=== PATIENT | female | born 1960 | race Caucasian/White ===

== ENCOUNTER → 2017-04-07 | Outpatient (CLI) | payer MEDICARE, MEDICAID ==
[~2017-04-07] MED LIST: ACET-1966 PO; CYCL10TA29 PO; FURO-47 PO; HYDR-4309 PO; IOPAMIDOL 76% 100 ML INFUS BTL 100 ML ONE; IOPAMIDOL 76% 75 ML INFUS BTL 75 ML ONE; METO1TAB38 PO; NS 0.9% 50 ML VIAL 100 ML ONE; NS 0.9% 50 ML VIAL 50 ML ONE; PROM-110 PO; PROP225T12 PO
== END ==
LOC: CT 08:00
PROVIDERS: ATTEND Nurse Practitioner Family
DX: Z02.9 Encounter for administrative examinations, unspecified (principal)
CPT/HCPCS: J7050; Q9967

== ENCOUNTER → 2017-04-11 | Outpatient (CLI) | payer MEDICARE, MEDICAID ==
[~2017-04-11] MED LIST changes: -IOPAMIDOL 76% 100 ML INFUS BTL 100 ML ONE; +IOPAMIDOL 76% 50 ML INFUS BTL 50 ML ONE; -IOPAMIDOL 76% 75 ML INFUS BTL 75 ML ONE; -NS 0.9% 50 ML VIAL 100 ML ONE
--- NOTE | 2017-04-11 13:24 | RADIOLOGY IMAGING REPORT ---
FACILITY: [facility] PATIENT NAME: Denise Gil : 1960 MR: [id number] V: [id number] EXAM DATE: ORDERING PHYSICIAN: ANDREW CHU TECHNOLOGIST: Location: [facility] - [place] Patient: Denise Gil : 1960 Visit/Account:[id number] Date of Sevice: 04/11/2017 ABDOMEN/PELVIS WITH CONTRAST HISTORY: Alcoholics cirrhosis, right abdomen pain TECHNIQUE: Following administration of IV contrast contiguous axial images acquired through the abdom en/pelvis. Coronal and sagittal reformatting also performed. The post contrast imaging was performe d in the arterial phase, the portal venous phase and delayed phase. Dose Lowering Technique One of the following dose optimization techniques was utilized in the performance of this exam: Autom ated exposure control; adjustment of the mA and/or kV according to the patient's size; or use of an i terative reconstruction technique. Specific details can be referenced in the facility's radiology C T exam operational policy. CONTRAST: 75 mL Isovue-[id number] COMPARISON: August 19, 2016 FINDINGS: Visualized lung bases: Negative. Hepatobiliary: There is a very faint ill-defined hypoattenuating mass along the inferior tip of the right lobe of the liver measuring approximately 1.4 cm in diameter. This appears hypoattenuating on all three phases of contrast enhancement. Spleen: There is a subcentimeter hypoattenuating lesion centrally within the spleen that appears unc hanged when compared the prior study Adrenals: Negative. Pancreas: Negative. Kidneys ureters or bladder: Negative. Genitalia: Hysterectomy GI: Negative. Vessels/spaces/nodes: Again noted is absence of the portal vein without obvious cavernous transforma tion. Mesenteric venous communication the left renal vein results in asymmetric prominence of the le ft renal vein and infrahepatic inferior vena cava Bones/soft tissues: There is a mild compression fracture along superior endplate of L4 not appreciat ed previously. Spondylotic changes in the inferior thoracic spine also again noted Additional findings: None pertinent. IMPRESSION: There is a very faint ill-defined hypoattenuating mass along the inferior right lobe the liver measur ing approximate 1.4 centers in diameter. This is indeterminate in nature. 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 Report Dictated By: Alethea Ardon MD at 04/11/2017 1:02 PM Report E-Signed By: Alethea Ardon MD at 04/11/2017 1:20 PM [id number]
== END ==
LOC: CT 03:56
PROVIDERS: ATTEND Nurse Practitioner Family
DX: R16.0 Hepatomegaly, not elsewhere classified (principal); D73.89 Other diseases of spleen; Z90.710 Acquired absence of both cervix and uterus
CPT/HCPCS: 74177; J7050; Q9967

== ENCOUNTER → 2017-08-15 | Outpatient (CLI) | payer MEDICARE, MEDICAID ==
[~2017-08-15] MED LIST changes: -IOPAMIDOL 76% 50 ML INFUS BTL 50 ML ONE; -NS 0.9% 50 ML VIAL 50 ML ONE
[2017-08-15 13:29] LABS: PLATELET COUNT, AUTOMATED 114 K/uL (150-450)
[2017-08-15 13:45] LABS: INR 1.27
== END ==
LOC: LAB 13:03
PROVIDERS: ATTEND Nurse Practitioner Family
DX: K70.30 Alcoholic cirrhosis of liver without ascites (principal); R93.2 Abnormal findings on diagnostic imaging of liver and biliary tract; K76.6 Portal hypertension; R10.31 Right lower quadrant pain; R10.11 Right upper quadrant pain; R19.7 Diarrhea, unspecified; K21.9 Gastro-esophageal reflux disease without esophagitis
CPT/HCPCS: 36415; 82040; 82105; 82247; 82310; 82374; 82435; 82565; 82947; 84075; 84132; 84155; 84295; 84450; 84460; 84520; 85025; 85610

== ENCOUNTER → 2017-08-20 | Outpatient (CLI) | payer MEDICARE, MEDICAID ==
[~2017-08-20] MED LIST changes: +GADOBENATE 529MG/1ML 15ML VIAL IVP ONE; +NS 0.9% 20 ML SDV 40 ML ONE
--- NOTE | 2017-08-20 14:09 | RADIOLOGY IMAGING REPORT ---
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 Liver lesion. Additional pertinent history: none TECHNIQUE: Multi-planar and multi-sequence imaging of the abdomen was performed without and with int ravenous contrast. Contrast dose: 15 mL Multihance intravenously . Additional focused sequences: none COMPARISON STUDIES: CT 04/11/17 FINDINGS: Lower chest: Negative Liver/biliary: Overall size is normal. Surface is smooth. There is no appreciable abnormal hypertroph y of the caudate lobe or left lobe. Signal pattern is normal. I see no evidence of significant diffus e hepatic steatosis and there are no regenerating nodules. As to the subtle lesion in the tip of the right lobe on the prior CT, this is not visible on the nonfat suppressed sequences can be seen as a h ypointensity on the opposed phase T1 series and is very likely benign focal fat. There is no clear ev idence of significant enhancement associated with this lesion. There is no diffusion restriction. Res t the liver demonstrates no additional focal or around it. As noted on the CT, the main portal vein is not visualized. A vessel in the felipa hepatis is an ectat ic tortuous common hepatic artery. There is a splenorenal shunt and mesenteric circulation appears to drain via the left renal vein. Pancreas: Negative Spleen: Negative Adrenal glands: Negative Kidneys/proximal ureter/retroperitoneum: Negative Bowel/peritoneum/mesenteries: Negative Vessels: Per above Musculoskeletal/body wall: Negative Lymph nodes: negative IMPRESSION: 1. As to the clinical history given, the MRI demonstrates no evidence of cirrhosis or significant dif fuse hepatic steatosis. 2. Focal lesion in the lower margin right lobe of the liver I think represent benign focal fat. More aggressive process is unlikely. 3. 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 Report Dictated By: Stevo Tierney MD at 08/20/2017 1:52 PM Report E-Signed By: Stevo Tierney MD at 08/20/2017 2:05 PM WSN:[email or web address]
== END ==
LOC: MRI 01:34
PROVIDERS: ATTEND Nurse Practitioner Family
DX: R93.2 Abnormal findings on diagnostic imaging of liver and biliary tract (principal)
CPT/HCPCS: 74183; A9577; J7050